=== PATIENT | male | born 1975 | race Two or more races ===

== ENCOUNTER 2020-03-30 06:02 | Inpatient (IN) | payer MEDICAID, OTHER ==
[~2020-03-30] VITALS: Ht 172.7 cm; Wt 69.4 kg
[~2020-03-30 06:02] MED LIST: ACET-2605 GT; ACET-868 GT; ASPI-605 GT; ATEN25TA GT; BISA10SU8 RC; DOCU50LI GT; HYDR-4384 GT; LACT-96 GT; LEVE500T9 GT; LEVO150T8 GT; LORA2DIS4 IJ; MAGN400O6 GT; NA P133E RC; PHEN125O GT; TRAZ-182 GT
--- NOTE | 2020-03-30 06:05 | NUR ---
PT BIB RA FROM [facility] WITH A C/O WITNESSED SEIZURE X 3. PT HAS A GTUBE AND LUE CONTRACTURE. PT IS NON VERBAL AT BASELINE. PT RESPONDS TO PAINFUL STIMULI. PT'S LEFT EYE SCLERA IS RED. PT IS ON THE MONITOR AND CONTINUOUS PULSE OX. 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 WILL CONTINUE TO MONITOR THE PT.
[2020-03-30] MEDS ORDERED: LORAZEPAM INJ 2 MG/ML VIAL ONE (06:12)
--- NOTE | 2020-03-30 06:20 | NUR ---
LOBSTER FISHERMAN IS AT THE BEDSIDE DRAWING THE PT.
--- NOTE | 2020-03-30 06:25 | NUR ---
20G IV STARTED IN RT HAND. PT REC'D MEDICATION ORDERED.
[2020-03-30] MEDS ORDERED: IV NS 0.9% 500 ML BAG IV ONE (06:30)
[2020-03-30] MEDS ORDERED: LORAZEPAM INJ 2 MG/ML VIAL IVP ONE (06:30)
--- NOTE | 2020-03-30 06:40 | NUR ---
PT LEFT FOR CT VIA GURNEY.
[2020-03-30 06:43] LABS: BASOPHILS % (AUTO) 0.7 % (0.0-2.0); EOSINOPHILS % (AUTO) 0.1 % (0.0-6.0); HEMATOCRIT 53 % (39-51); HEMOGLOBIN 18.1 g/dL (13.5-17.5); LYMPHOCYTES # (AUTO) 1.5 /CMM (0.8-4.8); LYMPHOCYTES % (AUTO) 23.3 % (20.0-44.0); MEAN CORPUSCULAR HGB CONC 34 g/dl (31.0-36.0); MEAN CORPUSCULAR VOLUME 96 fL (80-96); MONOCYTES # (AUTO) 0.7 /CMM (0.1-1.30); MONOCYTES % (AUTO) 11.5 % (2.0-12.0); NEUTROPHILS # (AUTO) 4.1 /CMM (1.8-8.9); NEUTROPHILS % (AUTO) 64.4 % (43.0-81.0); PLATELET COUNT (AUTO) 285 /CMM (150-450); WHITE BLOOD COUNT (AUTO) 6.3 K/uL (4.3-11.0)
--- NOTE | 2020-03-30 06:44 | NUR ---
CLINICAL PACKET/MOVE SHEET GIVEN TO ENVIRONMENTAL COMMUNICATIONS SPECIALIST FOR INSURANCE AUTH
--- NOTE | 2020-03-30 06:58 | NUR ---
PT RETURNED FROM CT.
[2020-03-30 07:18] LABS: LYMPHOCYTES % (MANUAL) 28 % (16-48); MONOCYTES % (MANUAL) 10 % (0-11.0); NEUTROPHILS % (MANUAL) 62 (42-76)
--- NOTE | 2020-03-30 07:22 | NUR ---
REPORT GIVEN TO KELLIE WORTHY FOR BRIEN.
[2020-03-30] MEDS ORDERED: LEVETIRACETAM (500MG) 500 MG/5 ML VIAL IV ONE (07:24)
--- NOTE | 2020-03-30 07:28 | NUR ---
CALLED PHARMACY FOR KEPPRA. WAS INSTRUCTED TO MIX IT IN THE ER.
[2020-03-30] MEDS ORDERED: LIOT25TA7 GT (07:29)
[2020-03-30] MEDS ORDERED: TOPI100T GT (07:29)
[2020-03-30] MEDS ORDERED: LACT-209 GT (07:29)
[2020-03-30] MEDS ORDERED: CEPH-570 GT (07:29)
[2020-03-30] MEDS ORDERED: DIVA125C2 GT (07:29)
[2020-03-30] MEDS ORDERED: METO25TA20 GT (07:29)
[2020-03-30] MEDS ORDERED: MUPI22OI2 TP (07:29)
[2020-03-30] MEDS ORDERED: LACT1CAP7 GT (07:29)
[2020-03-30] MEDS ORDERED: TRIA80CR12 TP (07:29)
[2020-03-30] MEDS ORDERED: LEVA1.2528 IH (07:29)
[2020-03-30] MEDS ORDERED: CHOL100045 GT (07:29)
[2020-03-30] MEDS ORDERED: ACET-868 GT (07:29)
[2020-03-30] MEDS ORDERED: AMLO2.5T4 GT (07:29)
[2020-03-30] MEDS ORDERED: LEVETIRACETAM (500MG) 500 MG in IV NS 0.9% 100 ML IV ONE (07:30)
[2020-03-30 07:32] LABS: CREATININE 0.7 mg/dL (0.6-1.3)
[2020-03-30 07:39] LABS: ALBUMIN 3.7 g/dL (3.4-5.0); BILIRUBIN,DIRECT 0.2 mg/dL (0.0-0.2); BILIRUBIN,TOTAL 0.9 mg/dL (0.2-1.0); TOTAL PROTEIN, SERUM 8.9 g/dL (6.4-8.2)
--- NOTE | 2020-03-30 07:43 | NUR ---
RECEIVED REPORT FROM GUY CROOK FOR BRIEN, PT IS AAOX1, NOT IN RESPIRATORY DISTRESS, V/S STABLE, KEPT RESTED AND COMFORTABLE, WILL CONTINUE TO MONITOR.
--- NOTE | 2020-03-30 08:17 | NUR ---
CALLED SAMEER GONZALES [phone] LEFT [facility].
--- NOTE | 2020-03-30 09:07 | NUR ---
GOT ACCEPTANCE WITH TELE BED CALLED [facility].
--- NOTE | 2020-03-30 10:10 | NUR ---
CALLED [facility] FOR TELE BED WILL CALL BACK NO BED AVAILABLE.
--- NOTE | 2020-03-30 10:37 | NUR ---
REPORT GIVEN TO KELLIE KINGSLEY FOR BRIEN.
[2020-03-30 11:15] VITALS: BP 118/102
[2020-03-30] MEDS ORDERED: BISACODYL SUPP (10 MG) 10 MG/SUPP.RECT SUPP.RECT RC PRN (11:30)
[2020-03-30] MEDS ORDERED: ACETAMINOPHEN 325 MG TABLET PO PRN (11:30)
[2020-03-30] MEDS ORDERED: MAGNESIUM HYDROXIDE 30 ML UDC GT PRN (11:30)
--- NOTE | 2020-03-30 11:53 | NUR ---
RN ADMITTING NOTE Report received from Devante in ER. Patient arrived around 1115 by sahara. Patient is bedbound, showing no signs of acute distress or SOB, stable on RA. Patient is non-verbal, occasionally yells out, squirming in bed. Skin assessed and photos taken and placed in chart. Photos also sent to Dr. Blackman per request of the skin (generalized rashes) and left eye redness. Vital signs BP 118/102, HR 106, RR 20, T 97.7F, O2 96% on RA. 153 lbs. Went over medication reconciliation over the phone with Dr. Blackman. Per Dr Blackman: - HOLD KEFLEX, HOLD VITAMIN D3, HOLD LACTOBACILLUS, HOLD TOPICAL CREAM MEDICATIONS, HOLD BACTROBAN - ADD VALPROIC ACID 500MG IV Q12H - ADD KEPPRA 1,000MG Q12H - CBC BMP TOMORROW IN AM - LOVENOX 40MG SUB-Q DAILY Orders repeated back and carried out. Will continue with admitting orders.
[2020-03-30] MEDS ORDERED: LEVETIRACETAM (250 MG) 250 MG TABLET PO SCH (12:00)
[2020-03-30 12:36] VITALS: BP 118/102
[2020-03-30] MEDS ORDERED: ALBUTEROL FS 2.5 MG/3 ML VIAL.NEB NEB PRN (13:30)
[2020-03-30] MEDS: ENOXAPARIN SODIUM 40 MG/0.4 ML DISP.SYRIN SQ SCH (14:00)
[2020-03-30] MEDS: METOPROLOL TARTRATE 25 MG TABLET GT SCH ×2 (14:01→20:19)
[2020-03-30] MEDS: JEVITY 1.2 CAL 1,000 ML BOTTLE GT SCH (15:32)
--- NOTE | 2020-03-30 15:32 | NUR ---
RN NOTE GTF started at 20mls/hr, advance as tolerated. G-tube flushed with 100mls, clean and patent.
[2020-03-30 16:00] VITALS: BP 111/79
[2020-03-30] MEDS: TOPIRAMATE 100 MG TABLET GT SCH (16:36)
[2020-03-30 17:40] VITALS: BP 111/79
--- NOTE | 2020-03-30 18:25 | NUR ---
RN CLOSING NOTE Patient is resting in bed, A/O x1, non-verbal, yells out occasionally. Patient is in no acute distress, no SOB noted, stable on RA. IV line in the right hand #20g is clean and intact s/l. No IVF ordered per Dr. Blackman. G-tube feeding [employer] 1.2 is running at 20mls/hr, will endorse to assembler 1st shift to advance as tolerated. All patient needs met, all due medications given, patient kept clean and dry throughout shift. Fall safety, seizure and aspiration precautions enforced. Will endorse to assembler 1st shift.
--- NOTE | 2020-03-30 19:25 | NUR ---
MS RN NOTES RECEIVED ON BED A/O X1,NON VERBAL,MOANS,WITH LEFT EYE REDNESS NOTED,SIDE RAILS UP X4 PADDED FOR SEIZURE PRECAUTION.WITH GT FEEDING INFUSING VIA GT PUMP,TOLERATED WELL.NO RESIDUAL VOLUME NOTED.WILL CONTINUE TO MONITOR STATUS.
[2020-03-30 20:00] VITALS: BP 132/94
[2020-03-30] MEDS: VALPROATE 500 MG in IV D5W 100 ML IV SCH (20:19)
--- NOTE | 2020-03-30 20:19 | NUR ---
OYSTER PREPARER NOTES SR 123,DUE LOPRESSOR 25MG /GT GIVEN EARLY FOR INCREASED HEART RATE.
[2020-03-30] MEDS: LEVETIRACETAM (250 MG) 250 MG TABLET PO SCH (20:52)
--- NOTE | 2020-03-30 20:55 | NUR ---
GEM STONE CUTTER NOTES HEART RATE THIS TIME 108,CALM AND QUIET THIS TIME.
[2020-03-30 23:55] VITALS: BP 120/84
[2020-03-31] VITALS: BP 120/84
[2020-03-31] MEDS: HYDROCODONE/APAP 5/325MG 1 EACH TABLET GT PRN (01:48)
--- NOTE | 2020-03-31 01:48 | NUR ---
PUBLICATIONS SALES REPRESENTATIVE NOTES AWAKE,MOANS,MEDICATED WITH NORCO 5/325MG,1 TAB GIVEN VIA GT ORDERED.
[2020-03-31 04:00] VITALS: BP 116/92
[2020-03-31] MEDS: METOPROLOL TARTRATE 25 MG TABLET GT SCH ×3 (04:59→20:21)
--- NOTE | 2020-03-31 05:00 | NUR ---
PUBLIC SAFETY OFFICER NOTES BP 116/92,PULSE-100,DUE LOPRESSOR 25MG PO ADMINISTERED SCHEDULED.
--- NOTE | 2020-03-31 06:17 | NUR ---
GAS SCRUBBER OPERATOR NOTES ON BED AWAKE,NON VERBAL.NO EPISODE OF SEIZURE NOTED.SIDE RAILS PADDED.GT FEEDING TOLERATED WELL.REPOSITION PER PROTOCOL.IN NO ACUTE DISTRESS.
[2020-03-31 06:44] LABS: CALCIUM, SERUM 8.7 mg/dL (8.5-10.1); CREATININE 0.8 mg/dL (0.6-1.3); POTASSIUM 3.5 mmol/L (3.5-5.1)
[2020-03-31 07:41] LABS: BASOPHILS # (AUTO) 0.1 /CMM (0.0-0.2); BASOPHILS % (AUTO) 0.8 % (0.0-2.0); HEMATOCRIT 52 % (39-51); HEMOGLOBIN 18.1 g/dL (13.5-17.5); LYMPHOCYTES # (AUTO) 1.9 /CMM (0.8-4.8); LYMPHOCYTES % (AUTO) 29.6 % (20.0-44.0); MEAN CORPUSCULAR HGB CONC 35 g/dl (31.0-36.0); MEAN CORPUSCULAR VOLUME 95 fL (80-96); MONOCYTES # (AUTO) 0.8 /CMM (0.1-1.30); MONOCYTES % (AUTO) 12.3 % (2.0-12.0); NEUTROPHILS # (AUTO) 3.6 /CMM (1.8-8.9); NEUTROPHILS % (AUTO) 57.3 % (43.0-81.0); PLATELET COUNT (AUTO) 356 /CMM (150-450); RED BLOOD CELL COUNT(AUTO) 5.48 MIL/uL (4.5-6.0); WHITE BLOOD COUNT (AUTO) 6.3 K/uL (4.3-11.0)
[2020-03-31 08:00] VITALS: BP 120/86
[2020-03-31] MEDS: ENOXAPARIN SODIUM 40 MG/0.4 ML DISP.SYRIN SQ SCH (08:40)
[2020-03-31] MEDS: TOPIRAMATE 100 MG TABLET GT SCH ×2 (08:40→17:12)
[2020-03-31] MEDS: LEVETIRACETAM (250 MG) 250 MG TABLET PO SCH ×2 (08:44→20:20)
[2020-03-31] MEDS: LIOTHYRONINE SODIUM (25 MCG) 25 MCG TABLET GT SCH (08:44)
[2020-03-31 09:00] VITALS: BP 120/86
[2020-03-31] MEDS ORDERED: ENOXAPARIN SODIUM 40 MG/0.4 ML DISP.SYRIN SQ SCH (09:00)
[2020-03-31] MEDS ORDERED: AMLODIPINE BESYLATE 2.5 MG TABLET GT SCH (09:00)
[2020-03-31] MEDS: VALPROATE 500 MG in IV D5W 100 ML IV SCH ×2 (09:08→20:20)
[2020-03-31 09:11] LABS: BAND % (MANUAL) 1 % (0.0-5.0); LYMPHOCYTES % (MANUAL) 32 % (16-48); MONOCYTES % (MANUAL) 13 % (0-11.0); MYELOCYTES % 1 % (0-0); NEUTROPHILS % (MANUAL) 53 (42-76)
[2020-03-31] MEDS: LEVOTHYROXINE SODIUM 75 MCG TABLET GT SCH (12:08)
[2020-03-31 16:00] VITALS: BP 122/75
--- NOTE | 2020-03-31 19:35 | NUR ---
MS RN OPEN NOTES PATIENT IS LAYING IN BED. A/O X1, NONVERBAL. ON RA, NO SOB/ ACUTE RESPIRATORY DISTRESS NOTED. BED IS IN LOWEST LOCKED POSITION WITH SIDE RAILS UP, SEMI FOWLERS. CALL LIGHT IS WITHIN REACH. WILL CONTINUE TO MONITOR.
[2020-03-31 20:00] VITALS: BP 118/83
[2020-04-01] MEDS: METOPROLOL TARTRATE 25 MG TABLET GT SCH ×3 (04:33→21:00)
[2020-04-01] MEDS: JEVITY 1.2 CAL 1,000 ML BOTTLE GT SCH (04:43)
--- NOTE | 2020-04-01 06:40 | NUR ---
MS RN CLOSE NOTES PATIENT IS LAYING IN BED. NONVERBAL. ON RA, NO SOB/ ACUTE RESPIRATORY DISTRESS NOTED. IV IN R FOREARM, #22G IS PATENT AND INTACT, ALL DUE ANTIBIOTICS GIVEN. SHOWS NO SIGNS OF PAIN/ DISTRESS. BED IS IN LOWEST LOCKED POSITION WITH SIDE RAILS UP X3, SEMI FOWLERS. CALL LIGHT IS WITHIN REACH. WILL ENDORSE TO AM NURSE.
--- NOTE | 2020-04-01 07:40 | NUR ---
rn notes patient received on room air, no sob noted, running jevity @ 85 ml per hour for 24 hours per report. Bed at the lowest setting, call light within reach, side rails up x2.
--- NOTE | 2020-04-01 07:41 | NUR ---
rn notes patient received on non rebreather mask at this time, no sob noted, shows no s/s of pain at this time. Pereira Cath present and is draining. KATE midline present and is flushing. Patient is running with GT osmolite @ 50 ml per hour for 24 hours per report. No bloody secretions noted. bed at the lowest setting, call light within reach, side rails up x2. Addendum: 04/01/20 at 0742 by GILBERT LE RN ERROR in charting.
[2020-04-01] MEDS: TOPIRAMATE 100 MG TABLET GT SCH ×2 (08:06→16:46)
[2020-04-01] MEDS: LEVETIRACETAM (250 MG) 250 MG TABLET PO SCH ×2 (08:06→21:51)
[2020-04-01] MEDS: BENAZEPRIL HCL 10 MG TABLET PEG SCH (08:06)
[2020-04-01] MEDS: ENOXAPARIN SODIUM 40 MG/0.4 ML DISP.SYRIN SQ SCH (08:07)
[2020-04-01] MEDS: LIOTHYRONINE SODIUM (25 MCG) 25 MCG TABLET GT SCH (08:09)
[2020-04-01] MEDS: VALPROATE 500 MG in IV D5W 100 ML IV SCH (09:00)
[2020-04-01 09:22] VITALS: BP 117/78
[2020-04-01] MEDS: TRAZODONE 50 MG TABLET GT SCH (11:22)
[2020-04-01] MEDS: LEVOTHYROXINE SODIUM 75 MCG TABLET GT SCH (11:22)
--- NOTE | 2020-04-01 12:36 | NUR ---
rn notes covid tests done 2x, with 2 different test kits, per LAB, no need to sign and I can just drop them off. Scabies scraped logged in the log book and signed.
[2020-04-01 15:59] VITALS: BP 105/58
--- NOTE | 2020-04-01 18:00 | NUR ---
rn notes patient remains on room air, no sob noted, a/o x0 non verbal, incontinent and diaper. GT jevity running at 85 ml per hour. R FA 22 present. guevara virus sent to the lab without signatures needed. Per family, they want the patient to go somewhere else when discharged. Bed at the lowest setting, call light within reach, side rails up x2.
--- NOTE | 2020-04-01 19:36 | NUR ---
MS RN OPEN NOTES PATIENT IS WATCHING TV IN BED. NONVERBAL. ON RA, NO SOB/ ACUTE RESPIRATORY DISTRESS NOTED. SHOWS NO SIGNS OF PAIN AT THE MOMENT. BED IS IN LOWEST LOCKED POSITION WITH SIDE RAILS UP X3, SEMI FOWLERS. CALL LIGHT IS WITHIN REACH. WILL CONTINUE TO MONITOR.
[2020-04-01 20:00] VITALS: BP 97/54
--- NOTE | 2020-04-01 21:30 | NUR ---
MS RN NOTES SPOKE TO DARCY (SISTER). DARCY STATED THAT SHE DID NOT WANT HER BROTHER TO GO BACK TO [facility] WHEN DISCHARGED. SHE STATED THAT THEY NEGLECTED HIM AT THAT FACILITY. WILL ENDORSE TO AM NURSE.
[2020-04-01] MEDS: VALPROIC ACID 250 MG/5 ML UDC GT SCH (21:44)
[2020-04-02] MEDS: JEVITY 1.2 CAL 1,000 ML BOTTLE GT SCH (03:49)
[2020-04-02] MEDS: METOPROLOL TARTRATE 25 MG TABLET GT SCH ×3 (04:25→21:00)
--- NOTE | 2020-04-02 06:38 | NUR ---
MS RN CLOSE NOTES PATIENT IS LAYING IN BED. NONVERBAL. ON RA NO SOB/ ACUTE RESPIRATORY DISTRESS NOTED. APPEARS COMFORTABLE/ NO COMPLAINTS OF PAIN AT THE MOMENT. IV IN R FOREARM #22G IS PATENT AND INTACT. GTUBE IN PLACE RECEIVING FEEDING @ 85MLS/HR. BED IS IN LOWEST LOCKED POSITION WITH SIDE RAILS UP, SEMI FOWLERS. CALL LIGHT IS WITHIN REACH. WILL ENDORSE TO AM NURSE.
[2020-04-02 08:00] VITALS: BP 131/95
--- NOTE | 2020-04-02 09:38 | NUR ---
WOUND CARE CONSULT: PT PRESENTS WITH BODY RASH AND SACRAL SCAR, PRESENT ON ADMISSION. MD IS AWARE OF RASH. RECOMMENDATIONS MADE FOR SKIN PROTECTION. DISCUSSED WITH NURSING STAFF. PT IS ON CHARLEE ISOFLEX LOW AIRLOSS BED. WILL SEE PRN. IN AGREEMENT WITH PLAN OF CARE.
[2020-04-02] MEDS ORDERED: Z GUARD REMEDY 2 OZ OINT TP PRN (10:00)
[2020-04-02] MEDS: ENOXAPARIN SODIUM 40 MG/0.4 ML DISP.SYRIN SQ SCH (10:06)
[2020-04-02] MEDS: TOPIRAMATE 100 MG TABLET GT SCH ×2 (10:09→18:19)
[2020-04-02] MEDS: LEVETIRACETAM (250 MG) 250 MG TABLET PO SCH ×2 (10:10→21:32)
[2020-04-02] MEDS: VALPROIC ACID 250 MG/5 ML UDC GT SCH ×2 (10:10→21:32)
[2020-04-02] MEDS: BENAZEPRIL HCL 10 MG TABLET PEG SCH (10:10)
[2020-04-02] MEDS: TRAZODONE 50 MG TABLET GT SCH (10:11)
[2020-04-02] MEDS: LIOTHYRONINE SODIUM (25 MCG) 25 MCG TABLET GT SCH (10:18)
[2020-04-02] MEDS: Z GUARD REMEDY 2 OZ OINT TP SCH (11:59)
[2020-04-02] MEDS: LEVOTHYROXINE SODIUM 75 MCG TABLET GT SCH (11:59)
[2020-04-02] MEDS ORDERED: PERMETHRIN 5% CRM 60 GM TUBE TP ONE ×3 (15:00→21:00)
[2020-04-02 16:00] VITALS: BP 129/90
--- NOTE | 2020-04-02 16:00 | NUR ---
REPORTED TO DR. GONZALES POSITIVE SCABIES REPORT.STILL AWAITING COVID REPORT.
--- NOTE | 2020-04-02 16:50 | NUR ---
PHARMACIST CHANGED ELIMITE TIME.
--- NOTE | 2020-04-02 18:00 | NUR ---
THRASHING ABOUT BED FREQ. GIVEN RASHI.
[2020-04-02] MEDS: HYDROCODONE/APAP 5/325MG 1 EACH TABLET GT PRN (18:25)
--- NOTE | 2020-04-02 19:20 | NUR ---
MS/RN OPENING NOTES: RECEIVED PATIENT IS IN BED. NONVERBAL. TRACKS WITH EYES. ON RA, NO SOB/ ACUTE RESPIRATORY DISTRESS NOTED. SHOWS NO SIGNS OF PAIN AT THE MOMENT. G-TUBE PRESENT, NO RESIDUAL NOTED. INFUSING FEEDING AT 85MLS/HR X 18HRS. IV PRESENT ON THE RIGHT FA #22G. INTACT, PATENT AND FLUSHING WELL. BILATERAL SOFT WRIST RESTRAINTS PRESENT AND HAS ON ORDER. WILL CHECK CIRCULATION AND SKIN INTEGRITY HOURLY. SAFETY MEASURES ON, BED IS IN LOWEST LOCKED POSITION WITH SIDE RAILS UP X3, SEMI FOWLERS. CALL LIGHT IS WITHIN REACH. WILL CONTINUE TO MONITOR ACCORDINGLY.
[2020-04-02 20:00] VITALS: BP 107/70
[2020-04-03] MEDS: METOPROLOL TARTRATE 25 MG TABLET GT SCH ×3 (04:36→20:40)
--- NOTE | 2020-04-03 06:57 | NUR ---
MS/RN CLOSING NOTES: PATIENT IS IN BED, IN COMFORTABLE POSITIONED. KEPT WARM, CLEAN AND DRY ALL NIGHT. NONVERBAL. TRACKS WITH EYES. ON RA, NO SOB/ ACUTE RESPIRATORY DISTRESS NOTED. SHOWS NO SIGNS OF PAIN AT THE MOMENT. G-TUBE PRESENT, NO RESIDUAL NOTED. INFUSING FEEDING AT 85MLS/HR X 18HRS. IV PRESENT ON THE RIGHT FA #22G. INTACT, PATENT AND FLUSHING WELL. BILATERAL SOFT WRIST RESTRAINTS PRESENT. CIRCULATION AND SKIN INTEGRITY CHECKED ACCORDINGLY. SAFETY MEASURES ON, BED IS IN LOWEST LOCKED POSITION WITH SIDE RAILS UP X3, SEMI FOWLERS. CALL LIGHT IS WITHIN REACH. WILL ENDORSE TO DAY SHIFT FOR BRIEN.
--- NOTE | 2020-04-03 07:06 | NUR ---
MS RN OPENING NOTES: RECEIVED PATIENT IS IN BED, AWAKE AT THIS TIME. NONVERBAL WITH OPEN EYES. NO SOB NOTED, NOS/S OF ANY ACUTE DISTRESS NOTED. NO S/S OF PAIN OR FACIAL GRIMACE NOTED AT THE MOMENT. G-TUBE IN PLACE, NO RESIDUAL NOTED. IV ACCESS IN RFA #22G. INTACT, PATENT AND FLUSHING WELL. BILATERAL SOFT WRIST RESTRAINTS PRESENT. GOOD CIRCULATION NOTED, CAPILLARY REFILL <3 SECONDS, PULSES PRESENT. ASPIRATION AND SAFETY PRECAUTIONS IN PLACE. BED IN LOWEST LOCKED POSITION, SIDE RAILS UP, HOB ELEVATED, CALL LIGHT WITHIN REACH WILL CONTINUE TO MONITOR ACCORDINGLY.
[2020-04-03 08:00] VITALS: BP 153/82
[2020-04-03] MEDS: ENOXAPARIN SODIUM 40 MG/0.4 ML DISP.SYRIN SQ SCH (08:38)
[2020-04-03] MEDS: TOPIRAMATE 100 MG TABLET GT SCH ×2 (08:39→17:11)
[2020-04-03] MEDS: LEVETIRACETAM (250 MG) 250 MG TABLET PO SCH ×2 (08:41→20:39)
[2020-04-03] MEDS: VALPROIC ACID 250 MG/5 ML UDC GT SCH ×2 (08:42→20:38)
[2020-04-03] MEDS: BENAZEPRIL HCL 10 MG TABLET PEG SCH (08:42)
[2020-04-03] MEDS: LIOTHYRONINE SODIUM (25 MCG) 25 MCG TABLET GT SCH (08:47)
[2020-04-03] MEDS: Z GUARD REMEDY 2 OZ OINT TP SCH (08:48)
[2020-04-03] MEDS: LEVOTHYROXINE SODIUM 75 MCG TABLET GT SCH (11:34)
[2020-04-03] MEDS: TRAZODONE 50 MG TABLET GT SCH (11:36)
--- NOTE | 2020-04-03 11:56 | NUR ---
ACUTE MEDICAL RESTRAIN RENEWED AT THIS TIME. PT REORIENTED/REDIRECTED. ASSESSED CIRCULATION, PULSES PRESENT, GOOD CIRCULATION, CAPILLARY REFILL <3SECONDS. WILL CONTINUE TO MONITOR
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
[2020-04-03] MEDS: JEVITY 1.2 CAL 1,000 ML BOTTLE GT SCH (15:06)
--- NOTE | 2020-04-03 15:15 | NUR ---
RECEIVED DISCHARGED INSTRUCTIONS FROM DR GONZALES. INSTRUCTION READ BACK. PER DR GONZALES, PATIENT'S Discharge meds essentially unchanged aside from the Depakote, the dose is now 500 mg G-tube twice daily. All the other meds are the same including Synthroid 150 mcg a day, Cytomel 25 mcg daily, topiramate 100 mg b.i.d., as needed nebulized treatments, metoprolol tartrate 25 mg every 8 hours. DISCONTINUE enoxaparin daily, upon discharge. FOLLOWUP: Within 48-72 hours in skilled facility. ORDERS CARRIED OUT PRESCRIBED, WILL CONTINUE TO MONITOR Addendum: 04/03/20 at 1703 by SUDEEP BONILLA RN RECEIVED DISCHARGED INSTRUCTIONS FROM DR GONZALES. INSTRUCTION READ BACK. PER DR GONZALES, PATIENT'S Discharge meds essentially unchanged aside from the Depakote, the dose is now 500 mg G-tube twice daily. All the other meds are the same including Synthroid 150 mcg a day, Cytomel 25 mcg daily, topiramate 100 mg b.i.d., as needed nebulized treatments, metoprolol tartrate 25 mg every 8 hours. DISCONTINUE enoxaparin daily, upon discharge. FOLLOWUP: Within 48-72 hours in skilled facility. TMS FORM COMPLETED PER ORDER AND PLACED IN PATIENTS CHART PENDING SIGNATURE ORDERS CARRIED OUT PRESCRIBED, WILL CONTINUE TO MONITOR
[2020-04-03 16:00] VITALS: BP 115/72
--- NOTE | 2020-04-03 18:51 | NUR ---
AMBULETTE DRIVER CLOSING NOTES PT IN BED AWAKE AT THIS TIME. PT REMAINED STABLE THROUGHOUT SHIFT. G-TUBE IN PLACE, KEPT CLEAN AND DRY. PT TOLERATED G-TUBE FEEDING WELL. ALL CARE, NEEDS, TREATMENT AND MEDICATIONS ADMINISTERED ANTICIPATED PER ORDER. PT KEPT CLEAN AND DRY. PT REPOSITIONED Q2HRS, PRN AND PER PROTOCOL. ASPIRATION, SEIZURE AND SAFETY PRECAUTIONS IN PLACE. BED IN LOWEST LOCKED POSITION, SIDE RAILS UP, HOB ELEVATED, CALL LIGHT WITHIN REACH. WILL ENDORSE TO NIGHT FOR BRIEN
--- NOTE | 2020-04-03 19:26 | NUR ---
MS RN NOTES PATIENT RECEIVED IN BED RESTING COMFORTABLY. PATIENT NON-VERBAL, RESPONSIVE WITH LIGHT TOUCH. ON ROOM AIR WITH NO SIGNS OF RESPIRATORY DISTRESS AT THIS TIME, WITH EVEN NON-LABORED BREATHING AND NO SOB NOTED. G-TUBE FEEDING IN PLACE AND INFUSING JEVITY AT 85mL/hr, TOLERATING FEEDING. IV ACCESS INTACT AND PATENT. BILATERAL SOFT WRIST RESTRAINTS IN PLACE, WITH NORMAL SKIN CIRCULATION. SAFETY PRECAUTIONS IMPLEMENTED WITH BED LOCKED, BED IN THE LOWEST POSITION, BILATERAL SIDE RAILS UP, BED ALARM ON, AND CALL LIGHT WITHIN EASY REACH OF THE PATIENT. WILL CONTINUE TO MONITOR PATIENT.
[2020-04-03 20:00] VITALS: BP 109/70
[2020-04-03 20:25] VITALS: BP 109/70
--- NOTE | 2020-04-04 02:56 | NUR ---
MS RN NOTES PATIENT IV ACCESS ON RIGHT FOREARM REMOVED DUE TO PATIENT PRESENTING PAIN WHEN FLUSHING SITE. REMOVED IV ACCESS, IV CATHETER TIP INTACT, AND APPLIED PRESSURED TO SITE. INSERT NEW IV ACCESS ON LEFT HAND 22 GAUGE, SALINE LOCK, INTACT AND PATENT. WILL CONTINUE TO MONITOR PATIENT.
[2020-04-04] MEDS: METOPROLOL TARTRATE 25 MG TABLET GT SCH ×3 (05:16→21:01)
--- NOTE | 2020-04-04 06:55 | NUR ---
MS RN NOTES PATIENT IN BED RESTING COMFORTABLY, ON ROOM AIR WITH NO SIGNS OF RESPIRATORY DISTRESS, WITH EVEN NON-LABORED BREATHING. PATIENT SKIN KEPT CLEAN AND DRY. IV ACCESS INTACT AND PATENT SALINE LOCK. G-TUBE FEEDING CHANGED AND INFUSING 85ml/hr OF JEVITY. MET ALL OF PATIENT'S NEEDS. PATIENT PRESENTS NO PAIN OR DISCOMFORT. SAFETY PRECAUTIONS IMPLEMENTED WITH BED LOCKED, BED IN THE LOWEST POSITION, BILATERAL SIDE RAILS UP, HEAD OF THE BED IN SEMI-FOWLERS POSITION, AND CALL LIGHT WITHIN EASY REACH OF PATIENT. WILL ENDORSE PLAN OF CARE TO UPCOMING DAYSHIFT NURSE.
--- NOTE | 2020-04-04 07:07 | NUR ---
MS RN OPENING NOTES: RECEIVED PT AWAKE IN BED AT THIS TIME. PT IS NONVERBAL. NO SOB NOTED, NO S/S OF ANY ACUTE DISTRESS NOTED. NO S/S OF PAIN, NO GROANING, NO FACIAL GRIMACE NOTED AT THIS TIME. G-TUBE IN PLACE, CLEAN AND DRY, NO RESIDUAL NOTED. IV ACCESS IN LEFT HAND G#22. INTACT, PATENT AND FLUSHING WELL. BILATERAL SOFT WRIST RESTRAINTS NOTED. GOOD CIRCULATION NOTED, CAPILLARY REFILL <3 SECONDS, PULSES PRESENT. ASPIRATION, SEIZURE AND SAFETY PRECAUTIONS IN PLACE. BED IN LOWEST LOCKED POSITION, SIDE RAILS UP AND PADDED, HOB ELEVATED, CALL LIGHT WITHIN REACH WILL CONTINUE TO MONITOR
[2020-04-04 08:00] VITALS: BP 123/67
[2020-04-04] MEDS: VALPROIC ACID 250 MG/5 ML UDC GT SCH ×2 (08:42→21:01)
[2020-04-04] MEDS: BENAZEPRIL HCL 10 MG TABLET PEG SCH (08:42)
[2020-04-04] MEDS: TOPIRAMATE 100 MG TABLET GT SCH ×2 (08:43→16:29)
[2020-04-04] MEDS: LEVETIRACETAM (250 MG) 250 MG TABLET PO SCH ×2 (08:43→21:02)
[2020-04-04] MEDS: ENOXAPARIN SODIUM 40 MG/0.4 ML DISP.SYRIN SQ SCH (08:45)
[2020-04-04] MEDS: LIOTHYRONINE SODIUM (25 MCG) 25 MCG TABLET GT SCH (08:53)
[2020-04-04] MEDS: Z GUARD REMEDY 2 OZ OINT TP SCH (08:53)
[2020-04-04] MEDS: TRAZODONE 50 MG TABLET GT SCH (11:08)
[2020-04-04] MEDS: LEVOTHYROXINE SODIUM 75 MCG TABLET GT SCH (11:08)
[2020-04-04] MEDS: JEVITY 1.2 CAL 1,000 ML BOTTLE GT SCH (14:42)
--- NOTE | 2020-04-04 18:00 | NUR ---
PER DR GONZALES, FACILITY RECEIVING PT UPON DISCHARGED SHOULD BE NOTIFIED OF PATIENT'S SCABIES AND PT SHOULD BE DISCHARGED WHEN COVID-19 RESULT COMES BACK NEGATIVE. ORDERS READ BACK. WILL ENDORSE TO PLASTERER MAINTENANCE NURSE FOR BRIEN
[2020-04-04 20:00] VITALS: BP 111/83
--- NOTE | 2020-04-04 21:30 | NUR ---
MS RN NOTES PUT BACK ON RESTRAINTS,SO RESTLESS ON BED.WILL CONTINUE TO MONITOR STATUS.
[2020-04-05] MEDS: JEVITY 1.2 CAL 1,000 ML BOTTLE GT SCH (03:30)
[2020-04-05] MEDS: METOPROLOL TARTRATE 25 MG TABLET GT SCH ×3 (05:22→20:37)
--- NOTE | 2020-04-05 06:16 | NUR ---
MS RN NOTES NO SIGNIFICANT CHANGE IN STATUS.GT FEEDING TOLERATED WELL.NO SEIZURE ACTIVITY NOTED.SIDE RAILS PADDED FOR SAFETY.NEXT ELIMITE TREATMENT 04/09/20.POSSIBLE TRANSFER TO SNF AWAITING COVID TEST RESULT.IN NO ACUTE DISTRESS.
--- NOTE | 2020-04-05 08:00 | NUR ---
MS/RN Opening note Received patient in bed, able to responds physical stimuli. Does no appears pain or any discomfort. Respiratory even and unlabored in room air and no distress observed. Also no fever, skin is warm to touch, kept clean/dry, g tube will off at 0800 and reconnect at 1400. Keep bed in locked with elevated HOB for secure airway and aspiration precaution. Call light within reach, will continue to monitor.
[2020-04-05] MEDS: TOPIRAMATE 100 MG TABLET GT SCH ×2 (09:03→16:28)
[2020-04-05] MEDS: VALPROIC ACID 250 MG/5 ML UDC GT SCH ×2 (09:03→20:36)
[2020-04-05] MEDS: BENAZEPRIL HCL 10 MG TABLET PEG SCH (09:03)
[2020-04-05] MEDS: LIOTHYRONINE SODIUM (25 MCG) 25 MCG TABLET GT SCH (09:04)
[2020-04-05] MEDS: LEVETIRACETAM (250 MG) 250 MG TABLET PO SCH ×2 (09:04→20:38)
[2020-04-05] MEDS: Z GUARD REMEDY 2 OZ OINT TP SCH (09:06)
[2020-04-05] MEDS: ENOXAPARIN SODIUM 40 MG/0.4 ML DISP.SYRIN SQ SCH (09:06)
--- NOTE | 2020-04-05 09:45 | NUR ---
Patient detected positive covid and going transfer to room 113, given report Dena/KELLIE over the phone.
--- NOTE | 2020-04-05 10:20 | NUR ---
Patient transferred SORAYA for continuation of care, in stable condition. v/s: bp-127/74, p-86, r- 18, t-98.0, [id number]% in room air.
--- NOTE | 2020-04-05 10:21 | NUR ---
MS RN NOTES RECEIVED PATIENT FROM KELLIE PIMENTEL FOR CONTINUATION OF CARE. PATIENT POSITIVE FOR COVID AND SCABIES.
[2020-04-05] MEDS: LEVOTHYROXINE SODIUM 75 MCG TABLET GT SCH (11:39)
[2020-04-05] MEDS: TRAZODONE 50 MG TABLET GT SCH (11:39)
[2020-04-05] MEDS ORDERED: IVERMECTIN 3 MG TABLET GT ONE (18:00)
--- NOTE | 2020-04-05 18:38 | NUR ---
MS RN NOTE PATIENT RESTING COMFORTABLY IN BED. HOB ELEVATED. NO S/S OF RESPIRATORY DISTRESS. REMAIN ON ROOM AIR WITH SPO2 OF 94-100%. NO COUGH/FEVER/SOB OBSERVED DURING THE SHIFT. BILATERAL WRIST RESTRAINT INTACT WITH SKIN AND CIRCULATION CHECK DONE. RIGHT HAND # 22 SL INTACT AND PATENT. GT INTACT AND PATENT MARCO ANTONIO JEVITY 1/2 AT 85ML/HR. WELL. NO RESIDUAL OBSERVED DURING THE SHIFT. CONTACT/DROPLET PRECAUTIONS OBSERVED AT ALL TIME FOR +COVID AND SCABIES. BED IN LOWEST POSITION, LOCKED. BED ALARM ON. CALL LIGHT WITHIN REACH. IN NO APPARENT DISTRESS.
--- NOTE | 2020-04-05 19:00 | NUR ---
RECEIVED PATIENT IN HIS BED. EYES OPEN SOME EYE CONTACT SMILES QUICKLY. NON VERBALNOTED HE IS MOVING AIMLESSLY IN THE BED.ROOM AIR SATS 98% HOB UP ASPIRATION PRECAUTIONS D/T NOTED GT FEEDING
[2020-04-05 20:00] VITALS: BP 120/84
[2020-04-06] VITALS: BP 109/76
[2020-04-06] MEDS: JEVITY 1.2 CAL 1,000 ML BOTTLE GT SCH (01:50)
[2020-04-06] MEDS: METOPROLOL TARTRATE 25 MG TABLET GT SCH ×2 (05:31→12:22)
--- NOTE | 2020-04-06 06:05 | NUR ---
ENDING NOTES: AWAKE 3/4 OF THIS NIGHT. NOTED HE IS MOVING ABOUT AIMLESSILY OVER THE BED...POSSSIBLY D/T IS BACK ITCHING FROM THE SCABIES. BATH GIVEN AND CLEAN LINEN. WHEN BEING TURNED HE MAKES HIMSELF RIDGET. HIS RASH IS STILL OVER HIS BODY NECK TORSO BACK ARMS AND KEGS. FOOT DROP NOTED. WHEN HE DOES SEE SOMEONE AT HIS BEDSIDE HE WILL SMILE . TOLERATING THE GT FEEDING W/O RESIDUAL. ASP PRECAUTION THIS 12 HOURS. SEIZURE PRECAUTIONS THIS 12 HOURS MAINTAINED. GOOD NIGHT
[2020-04-06 08:00] VITALS: BP 135/80
--- NOTE | 2020-04-06 08:26 | NUR ---
RN Note: Pt received alert awake Oriented to name. On room air, no breathing distress noted. No S/S of distress/discomfort noted. Safety measures Observed. Aspiration precautions observed. G-tube is OFF, will start at 14oo as ordered. No residual noted. Continue to turn & reposition. No restraints required at this time. continue with plan of care. continue with Contact/droplet precautions for COVID +ve and scabies.
[2020-04-06] MEDS: LEVETIRACETAM (250 MG) 250 MG TABLET PO SCH (09:07)
[2020-04-06] MEDS: LIOTHYRONINE SODIUM (25 MCG) 25 MCG TABLET GT SCH (09:07)
[2020-04-06] MEDS: BENAZEPRIL HCL 10 MG TABLET PEG SCH (09:08)
[2020-04-06] MEDS: VALPROIC ACID 250 MG/5 ML UDC GT SCH (09:08)
[2020-04-06] MEDS: TOPIRAMATE 100 MG TABLET GT SCH (09:08)
[2020-04-06] MEDS: Z GUARD REMEDY 2 OZ OINT TP SCH (09:08)
[2020-04-06] MEDS: ENOXAPARIN SODIUM 40 MG/0.4 ML DISP.SYRIN SQ SCH (09:12)
--- NOTE | 2020-04-06 11:30 | NUR ---
RN note: Report given to Alina HOPKINS for continuity of care. Plan to discharge pt to [facility]. Report given to RN supervisor cab at SNF. Discharge package is printed & placed in pt chart.
[2020-04-06 12:22] VITALS: BP 100/75
[2020-04-06] MEDS: LEVOTHYROXINE SODIUM 75 MCG TABLET GT SCH (12:26)
--- NOTE | 2020-04-06 14:10 | NUR ---
TROUBLE TRACER SUMMARY PT DISCHARGED TO [facility]IA [facility], P/U BY [facility]. PT IS NONVERBAL. NON-MONITORED, VSS. TOLERATING RA. RESPIRATIONS ARE EVEN AND UNLABORED, NOT IN ANY ACUTE DISTRESS NOTED. GT IN PLACE, FLUSHED, INTACT. SKIN CDI. NOTED WITH GENERALIZED RASHES. PICTURES TAKEN BY MORNING RN AND PLACED IN CHART. [facility], REPORT GIVEN TO RN DIRECTOR ON AIR. BEDSIDE ENDORSEMENT GIVEN TO EMT PERSONNEL. ISOLATION PRECUATIONS RENDERED FOR POSITIVE COVID AND SCABIES. PT HAD NO BELONGINGS. PT LEFT IN MEDICAL STABLE CONDITION,.
[2020-04-09] MEDS ORDERED: PERMETHRIN 5% CRM 60 GM TUBE TP ONE (21:00)
== END 2020-04-06 14:00 | DRG 53 ==
LOC: ER 06:04 → TELE 10:37 → MED 03-31 09:10 → MEDSG1 04-05 10:04
PROVIDERS: ADMIT Internal Medicine; ATTEND Internal Medicine
DX: G40.409 Other generalized epilepsy and epileptic syndromes, not intractable, without status epilepticus (principal); G93.1 Anoxic brain damage, not elsewhere classified; I10 Essential (primary) hypertension; E03.9 Hypothyroidism, unspecified; U07.1 COVID-19; R79.89 Other specified abnormal findings of blood chemistry; R00.0 Tachycardia, unspecified; Z93.1 Gastrostomy status; R21 Rash and other nonspecific skin eruption; R13.10 Dysphagia, unspecified; Z88.2 Allergy status to sulfonamides
CPT/HCPCS: 36415; 70450-TC; 71045-TC; 80048-TC; 80076-TC; 80164-TC; 82962-TC; 84443-TC; 85025-TC; 85730-TC; 87081-TC; A4217; A6403; G0378; J1650; J1953; J2060; J3490; J7030; J7040; J7060; U0003-CS

== ENCOUNTER 2020-05-24 12:24 | Inpatient (IN) | payer MEDICAID ==
[~2020-05-24] VITALS: Ht 177.8 cm; Wt 66.2 kg
[~2020-05-24 12:24] MED LIST changes: -ACET-2605 GT; +AMLO2.5T4 GT; -ASPI-605 GT; -ATEN25TA GT; +CEPH-570 GT; +CHOL100045 GT; +DIVA125C2 GT; -DOCU50LI GT; +LACT-209 GT; -LACT-96 GT; +LACT1CAP7 GT; +LEVA1.2528 IH; +LIOT25TA7 GT; -LORA2DIS4 IJ; +METO25TA20 GT; +MUPI22OI2 TP; -NA P133E RC; -PHEN125O GT; +TOPI100T GT; +TRIA80CR12 TP
[2020-05-24] MEDS ORDERED: IV NS 0.9% 500 ML BAG IV ONE (13:00)
[2020-05-24] MEDS ORDERED: LEVETIRACETAM (500MG) 500 MG in IV NS 0.9% 100 ML IV ONE (13:00)
[2020-05-24 13:02] LABS: BASOPHILS # (AUTO) 0.1 /CMM (0.0-0.2); BASOPHILS % (AUTO) 0.9 % (0.0-2.0); EOSINOPHILS % (AUTO) 0.1 % (0.0-6.0); HEMATOCRIT 48 % (39-51); HEMOGLOBIN 16.1 g/dL (13.5-17.5); LYMPHOCYTES # (AUTO) 1.8 /CMM (0.8-4.8); LYMPHOCYTES % (AUTO) 32.8 % (20.0-44.0); MEAN CORPUSCULAR HGB CONC 34 g/dl (31.0-36.0); MEAN CORPUSCULAR VOLUME 96 fL (80-96); MONOCYTES # (AUTO) 1.1 /CMM (0.1-1.30); NEUTROPHILS # (AUTO) 2.5 /CMM (1.8-8.9); NEUTROPHILS % (AUTO) 46.2 % (43.0-81.0); PLATELET COUNT (AUTO) 268 /CMM (150-450); RED BLOOD CELL COUNT(AUTO) 4.95 MIL/uL (4.5-6.0); WHITE BLOOD COUNT (AUTO) 5.4 K/uL (4.3-11.0)
--- NOTE | 2020-05-24 13:15 | NUR ---
bibra90 frm [facility]. per report, noted "seizure like activity" unknown duration bg 104 user acceptance tester. PT NON VERBAL, EYES CLOSED. VSS. PLACED ON STEEL DIVISION SUPERVISOR, ST. PT SEEN & EVAL'D BY DR. BARKLEY. PLACED ON SEZURE PRECAUTION. MEDICATED ORDERED & WILL CONT TO MONITOR.
[2020-05-24 13:17] LABS: CALCIUM, SERUM 9.3 mg/dL (8.5-10.1); CREATININE 0.7 mg/dL (0.6-1.3); POTASSIUM 3.7 mmol/L (3.5-5.1)
[2020-05-24 13:23] LABS: ALBUMIN 3.7 g/dL (3.4-5.0); BILIRUBIN,DIRECT 0.2 mg/dL (0.0-0.2); BILIRUBIN,TOTAL 0.7 mg/dL (0.2-1.0); TOTAL PROTEIN, SERUM 8.5 g/dL (6.4-8.2)
--- NOTE | 2020-05-24 14:24 | NUR ---
CALLED [facility] ETA 1600 TRIP #[id number]
[2020-05-24 15:13] LABS: LYMPHOCYTES % (MANUAL) 43 % (16-48); MONOCYTES % (MANUAL) 17 % (0-11.0); NEUTROPHILS % (MANUAL) 38 (42-76); REACTIVE LYMPHOCYTES 2 % (0-0)
[2020-05-24] MEDS ORDERED: LORAZEPAM INJ 2 MG/ML VIAL ONE ×2 (17:12→18:21)
--- NOTE | 2020-05-24 17:22 | NUR ---
AMBULANCE COMPANY @ REFUSED TO TRANSFER PT DUE TO HR 130. MEDICATED PER ERMD ORDER, PT MARCO ANTONIO WELL. WILL CONT TO MONITOR.
[2020-05-24] MEDS ORDERED: LORAZEPAM INJ 2 MG/ML VIAL IV ONE ×2 (17:30→18:00)
[2020-05-24] MEDS ORDERED: IV NS 0.9% 1,000 ML IV ONE (18:00)
[2020-05-24] MEDS ORDERED: ACET-868 GT (18:43)
[2020-05-24] MEDS ORDERED: ACET-2605 GT (18:43)
[2020-05-24] MEDS ORDERED: NA P133E RC (18:43)
[2020-05-24] MEDS ORDERED: DOCU-141 GT (18:43)
[2020-05-24] MEDS ORDERED: ONDA4TAB5 GT (18:43)
[2020-05-24] MEDS ORDERED: LEVA15HF4 IH (18:43)
[2020-05-24] MEDS ORDERED: CRAN425C6 GT (18:43)
[2020-05-24] MEDS ORDERED: ACET650S11 RC (18:43)
[2020-05-24] MEDS ORDERED: LORA2VIA11 IM (18:43)
[2020-05-24] MEDS ORDERED: ENOX40DI SQ (18:43)
[2020-05-24] MEDS ORDERED: MULT-447 GT (18:43)
[2020-05-24 18:46] LABS: APPEARANCE,URINE Clear (CLEAR); BILIRUBIN,URINE Negative (NEGATIVE); BLOOD, URINE Moderate Ery/uL (NEGATIVE); COLOR,URINE Yellow (YELLOW); KETONES,URINE Negative (NEGATIVE); LEUKOCYTE ESTERASE ,URINE Negative (NEGATIVE); NITRITE, URINE Negative (NEGATIVE); PROTEIN,URINE 100 mg/dl (NEGATIVE); UGLUCOSE Negative (NEGATIVE); UROBILINOGEN,URINE 0.2 EU/dL (0.2)
[2020-05-24 18:56] LABS: RBC,URINE 21-50 /HPF (0-2)
--- NOTE | 2020-05-24 18:56 | NUR ---
GAVE MOVESHEET AND CLINICALS TO ADMITTING
[2020-05-24 18:57] LABS: BACTERIA,URINE Few /HPF (None Seen); MUCUS,URINE Few /LPF (None Seen); SQUAMOUS EPITHELIAL CELL,UR Few /HPF (None Seen)
[2020-05-24] MEDS ORDERED: LEVOFLOXACIN 500 MG /D5W 100ML 500 MG/100 ML PIGGYBACK IV ONE (19:00)
--- NOTE | 2020-05-24 19:30 | NUR ---
DR RONNY HOFFMANN SPEAKING WITH DR SCOTT REGARDING ADMISSION
--- NOTE | 2020-05-24 19:51 | NUR ---
CALLED NURSING SUP FOR TELE BED
--- NOTE | 2020-05-24 20:00 | NUR ---
PT RESTING, RR EVEN & UNLABORED, NO ACUTE DISTRESS NOTED. PT ON TELE, ST. WILL CONT TO MONITOR.
--- NOTE | 2020-05-24 20:33 | NUR ---
BED ASSIGNMENT [id number]
--- NOTE | 2020-05-24 20:50 | NUR ---
REPORT GIVEN TO KELLIE GRIGGS FOR BRIEN.
[2020-05-24 21:31] VITALS: BP 122/90
[2020-05-24] MEDS ORDERED: ONDANSETRON HCL/PF 4 MG/2 ML VIAL IV PRN (22:30)
[2020-05-24] MEDS ORDERED: NALOXONE HCL 0.4 MG/ML AMPUL IV PRN (22:30)
[2020-05-24] MEDS ORDERED: ACETAMINOPHEN 650 MG/SUPP.RECT RC PRN (22:30)
[2020-05-24] MEDS ORDERED: HYDROCODONE/APAP 5/325MG TABLET GT PRN (22:30)
[2020-05-24] MEDS ORDERED: ACETAMINOPHEN ES 500 MG TABLET GT PRN (22:30)
[2020-05-25] VITALS: BP 122/65
[2020-05-25] MEDS: JEVITY 1.2 CAL 1,000 ML BOTTLE GT PRN (01:51)
--- NOTE | 2020-05-25 02:49 | NUR ---
RN notes Admitted a 44 year male from ER via stretcher in stable condition with diagnosis of seizure. Vital signs taken, wnl. No physical manifestation of pain or discomfort. Obtunded. Breathing even and unlabored. Room air well tolerated. Pereira catheter in place draining clear yellow with no foul odor urine. Started feeding jevity 1.2 at 30mls/hr, tolerating well. Kept clean and dry. Will continue to monitor and will endorse to next shift for continuity of care
[2020-05-25 04:00] VITALS: BP 115/86
[2020-05-25] MEDS: LORAZEPAM INJ 2 MG/ML VIAL IV PRN ×3 (04:17→09:05)
--- NOTE | 2020-05-25 07:15 | NUR ---
LICENSED AUDIOLOGIST NOTES RECEIVED PATIENT OBTUNDED , NOT IN ACUTE DISTRESS , RESPIRATIONS EVEN AND UNLABORED WITH SPO2 OF 100% VIA RA , ST115 ON BEDSIDE MONITOR , FC DRAINING WELL VIA GRAVITY , GT WITH JEVITY @ 30ML/HR TOLERATING WELL , SHIRLEY MIDLINE SL , ALL NEEDS ATTENDED , WILL CONTINUE TO MONITOR
[2020-05-25] MEDS: LIOTHYRONINE SODIUM (25 MCG) 25 MCG TABLET GT SCH (07:54)
[2020-05-25 08:00] VITALS: BP 114/89
[2020-05-25] MEDS ORDERED: ALBUTEROL FS 2.5 MG/0.5 ML VIAL.NEB NEB PRN (08:00)
[2020-05-25] MEDS: DOCUSATE SODIUM LIQ 100 MG/10 ML UDC GT SCH (08:46)
[2020-05-25] MEDS: MULTIVIT W/MINERALS 1 TAB TABLET GT SCH (08:46)
[2020-05-25] MEDS: TOPIRAMATE 100 MG TABLET GT SCH ×2 (08:46→21:16)
[2020-05-25] MEDS: METOPROLOL TARTRATE 50 MG TABLET GT SCH ×2 (08:47→21:00)
--- NOTE | 2020-05-25 09:05 | NUR ---
FINANCIAL ADVISER NOTES PT HAD SEIZURE ACTIVITY LASTINF FOR 20-30 SECONDS , HR 120-130 BP, , SPO2 81% , SUCTIONED PATIENT , PLACED PT ON O2 AT 3LPM NC , ATIVAN GIVEN PRN , WILL CONTINUE TO MONITOR , PT VS STABLE POST SEIZURE , HOB @ 45, WILL CONTINUE TO MONITOR
[2020-05-25] MEDS: LEVETIRACETAM (500MG) 1,500 MG in IV NS 0.9% 100 ML IV SCH ×2 (09:07→18:32)
--- NOTE | 2020-05-25 10:07 | NUR ---
TIE BUYER NOTES REPORT GIVEN TO INA RN FOR CONTINUITY OF CARE , PT STABLE AT THIS TIME , ALL QUESTIONS ANSWERED ,
[2020-05-25 12:00] VITALS: BP 107/72
[2020-05-25 16:00] VITALS: BP 127/72
--- NOTE | 2020-05-25 19:10 | NUR ---
RN NOTE RECEIVED PT AWAKE, RESTING BED. FULL CODE. OBTUNDED. ALLERGIES NOTED. MIDLINE IS IN LEFT UPPER ARM, PATENT INTACT FLUSHING WELL. MONITOR SHOWS ST 110. G TUBE FEEDING JEVITY @ 30ML TOLERATING WELL. O2 SAT AT 99 ON RA TOLERATING WELL. NO SIGNS OF RESPIRATORY DISTRESS. BED LOCKED IN LOWEST POSITION. NEEDS ANTICIPATED. WILL CONTINUE TO MONITOR.
--- NOTE | 2020-05-25 19:22 | NUR ---
RN NOTE No any significant changes noted. No seizure noted after the 914 episode. S/E by Dr. Doll, still awaiting EEG. Kept clean, warm and dry. Needs attended. Spoke with family, updated re: patient's condition.
[2020-05-25 20:00] VITALS: BP 107/72
[2020-05-25] MEDS: MAGNESIUM HYDROXIDE 30 ML UDC GT SCH (21:15)
[2020-05-25] MEDS: TRAZODONE 50 MG TABLET GT SCH (21:15)
[2020-05-26] VITALS (7 sets, daily range): BP systolic 104–141; BP diastolic 61–79
--- NOTE | 2020-05-26 01:00 | NUR ---
PROJECT ENGINEERING DIRECTOR NOTE PT IS STABLE AT THIS TIME. NO APPARENT DISTRESS NOTED. G TUBE FEEDING ON AND TOLERATING WELL. WILL CONTINUE TO MONITOR.
--- NOTE | 2020-05-26 03:02 | NUR ---
RN NOTE CLEANED PT. 1 MUCOID LIKE BOWEL MOVEMENT. PT DESAT TO 80, CALLED RT ALIYAH TO ASSIST AND PLACED ON NON REBREATHER AT 15L OF O2. PT IS NOW TOLERATING WELL, SATURATING AT 98%. WILL CONTINUE TO MONITOR. Addendum: 05/26/20 at 0410 by CHIO CESAR RN WRONG PATIENT
--- NOTE | 2020-05-26 06:35 | NUR ---
PMO LEAD NOTE PT IS RESTING IN BED. NO APPARENT SIGNS OF DISTRESS AT THIS TIME. O2 SAT 98 ON RA, TOLERATING WELL. IV SITES PATENT AND INTACT. NEEDS ATTENDED. WILL ENDORSE TO ONCOMING NURSE FOR CONTINUATION OF CARE.
--- NOTE | 2020-05-26 07:20 | NUR ---
RN NOTE Received patient awake, opens eyes but does not follow commands. Tolerated room air. SR 90's on the monitor. Pereira cath intact, noted with alyssa colored urine drained to BSD. GT intact, feeding tolerated. KATE midline intact. No episode of seizure form last shift, will continue to monitor. Awaiting EEG.
[2020-05-26] MEDS: LEVOTHYROXINE SODIUM 75 MCG TABLET PO SCH (08:34)
[2020-05-26] MEDS: LEVETIRACETAM (500MG) 1,500 MG in IV NS 0.9% 100 ML IV SCH ×2 (08:34→19:02)
[2020-05-26] MEDS: DOCUSATE SODIUM LIQ 100 MG/10 ML UDC GT SCH (08:34)
[2020-05-26] MEDS: METOPROLOL TARTRATE 50 MG TABLET GT SCH ×2 (08:35→21:18)
[2020-05-26] MEDS: TOPIRAMATE 100 MG TABLET GT SCH ×2 (08:35→21:18)
[2020-05-26] MEDS: MULTIVIT W/MINERALS 1 TAB TABLET GT SCH (08:35)
[2020-05-26] MEDS: LIOTHYRONINE SODIUM (25 MCG) 25 MCG TABLET GT SCH (09:05)
--- NOTE | 2020-05-26 12:25 | NUR ---
TEACHER OF THE HEARING IMPAIRED NOTES RECEIVED PT FROM INA RN VIA BED, PT IS AWAKE, NON VERBAL, NO SIGN OF PAIN, NOT IN DISTRESS, SEIZURE PRECAUTIONS IN PLACE, KEPT COMFORTABLE, VITALS TAKEN AND RECORDED, GT FEEDINGS CONTINUED, F/C IN PLACE, KEPT WARM AND COMFORTABLE IN BED.
--- NOTE | 2020-05-26 12:25 | NUR ---
RN NOTE 1130: No any significant changes. No seizure activity noted. coil repair technician was here but said unable to perform the procedure well due to frequent moving. 1225: Endorsed care to Keren HOPKINS and brought to 306-2 via bed using ACLS protocol, VS remained stable.
[2020-05-26] MEDS: JEVITY 1.2 CAL 1,000 ML BOTTLE GT PRN (12:49)
--- NOTE | 2020-05-26 18:40 | NUR ---
BONE GRINDER NOTES PT IN BED, RESTING, NO SIGN OF PAIN OR DISTRESS, NON VERBAL, GT FEEDING INFUSING WELL, TOLERATES WELL, PM CARE PROVIDED, TURNED AND REPOSITIONED Q2 HOURS, SAFETY AND SEIZURE PRECAUTIONS OBSERVED, KEPT WARM AND COMFORTABLE IN BED.
--- NOTE | 2020-05-26 19:53 | NUR ---
RN OPENING NOTES PATIENT RECEIVED RESTING IN BED OBTUNDED, STABLE ON RA WITH BREATHING EVEN AND UNLABORED. NO SOB NOTED. NO SIGNS OF ACUTE DISTRESS. NO COMPLAINTS OF PAIN OR DISCOMFORT- NO FACIAL GRIMACING NOTED. ANTONIO IN PLACE. GTUBE FEEDING RUNNING JEVITY 1.2 @ 30 ML/HR. KATE MIDLINE NOTED AND IN PLACE. SAFETY PRECAUTIONS IN PLACE WITH BED IN LOWEST POSITION, CALL LIGHT WITHIN REACH, BREAKS ON, SIDE RAILS UP. WILL CONTINUE TO MONITOR THROUGHOUT THE NIGHT.
[2020-05-26] MEDS: TRAZODONE 50 MG TABLET GT SCH (21:18)
[2020-05-26] MEDS: MAGNESIUM HYDROXIDE 30 ML UDC GT SCH (21:18)
[2020-05-27] VITALS: BP 105/70
[2020-05-27 04:00] VITALS: BP 107/74
--- NOTE | 2020-05-27 06:57 | NUR ---
RN CLOSING NOTES PATIENT RESTING IN BED OBTUNDED, STABLE ON RA WITH BREATHING EVEN AND UNLABORED. NO SOB NOTED. NO SIGNS OF ACUTE DISTRESS. NO COMPLAINTS OF PAIN OR DISCOMFORT- NO FACIAL GRIMACING NOTED. ANTONIO IN PLACE. GTUBE FEEDING RUNNING JEVITY 1.2 @ 30 ML/HR. KATE MIDLINE NOTED AND IN PLACE. SAFETY PRECAUTIONS IN PLACE WITH BED IN LOWEST POSITION, CALL LIGHT WITHIN REACH, BREAKS ON, SIDE RAILS UP. ALL NEEDS ATTENDED TO. PATIENT KEPT CLEAN AND DRY THROUGHOUT THE NIGHT. WILL ENDORSE TO ONCOMING SHIFT ABOUT BRIEN.
--- NOTE | 2020-05-27 07:20 | NUR ---
RN OPENING NOTES PATIENT IN BED RESTING. NOT IN ANY FORM OF DISTRESS. NO SOB. NO S/S F PAIN OR DISCOMFORT. IVB ACCESS INTACT AND PATENT. GTF TOLERATING WELL. ANTONIO CATHETER IN PLACE. KEPT PATIENT SAFE AND COMFORTABLE. SEIZURE PREC OBSERVED. BED IN LOW/LOCKED PSOITION. PADDED SIDERAILS UP, CALL LIGHT IN REACH, BED ALARM ON. WILL CONT TO MONIOTR ACCORDINGLY
[2020-05-27 08:00] VITALS: BP 108/71
[2020-05-27] MEDS: LEVETIRACETAM SOL (5 ML) 100 MG/ML UDC GT SCH ×2 (08:56→21:05)
[2020-05-27] MEDS: DOCUSATE SODIUM LIQ 100 MG/10 ML UDC GT SCH (08:56)
[2020-05-27] MEDS: TOPIRAMATE 100 MG TABLET GT SCH ×2 (08:57→21:09)
[2020-05-27] MEDS: MULTIVIT W/MINERALS 1 TAB TABLET GT SCH (08:58)
[2020-05-27] MEDS: METOPROLOL TARTRATE 50 MG TABLET GT SCH ×2 (09:00→21:10)
[2020-05-27] MEDS: LEVOTHYROXINE SODIUM 75 MCG TABLET PO SCH (09:01)
[2020-05-27] MEDS: LIOTHYRONINE SODIUM (25 MCG) 25 MCG TABLET GT SCH (09:01)
[2020-05-27 16:00] VITALS: BP 106/87
--- NOTE | 2020-05-27 18:39 | NUR ---
RN CLOSING NOTES PATIENT IN STABLE CONDITION. ALL NEEDS ATTENDED AND PROVIDED. ALL DUE MEDS GIVEN ORDERED. KEPT PATIENT SAFE AND COMFORTABLE. BED IN LOW/LOCKED POSITION. SIDERAILS UPX2, CALL LIGHT IN REACH. WILL ENDORSE ACCORDINGLY.
--- NOTE | 2020-05-27 18:42 | NUR ---
FOR DISCHARGE. REPORT GIVEN TO MONAE HOPKINS AT [facility]. DC INSTRUCTIONS GIVEN, VERBALIZED UNDERSTANDING.
--- NOTE | 2020-05-27 19:23 | NUR ---
GUN PERFORATOR OPENING NOTES PATIENT AWAKE, OBTUNDED; BREATHING EVEN AND UNLABORED; TOLERATING ROOM AIR WELL; NO SOB NOTED; G TUBE IN PLACE; ANTONIO IN PLACE, WITH YELLOW OUTPUT; PATIENT HAS NO IV ACCESS AT THIS TIME; PER AM NURSE, PATIENT AWAITING TO BE PICKED UP FOR DISCHARGE APPROX 1930; WILL CONT TO MONITOR, AWAITING MUSEUM ASSISTANT; CHARGE NURSE AWARE
[2020-05-27 20:00] VITALS: BP_SYST 123; BP_SYST 133; BP_DIAS 74; BP_DIAS 91
--- NOTE | 2020-05-27 20:01 | NUR ---
TELE MONITOR OPENING NOTES DISCHARGE HELD; PER EMT, CLARIFY WITH SHELTER IF PATIENT QUALIFIES TO BE ADMITTED D/T HR OF 115; SPOKE WITH VADIM, NURSING SCRAP WHEELER, SHE REPORTED THEY ARE UNABLE TO ACCEPT THE PATIENT D/T HR OF 115, PER NURSING SCRAP WHEELER, ACCEPTABLE HR SHOULD BE AROUND 90S; CHARGE NURSES (MARIO, RN AND JESUS, RN) BOTH AWARE OF SITUATION; ATTEMPTED TO CALL CASE MGMTX2, NO ANSWER; SPOKE WITH DR. GONZALES REGARDING DISCHARGE; PER DR. GONZALES INCREASE LOPRESSOR FROM 50MG/Q12 TO 100MG/Q12; PER DR. GONZALES KEEP PATIENT TELE AND CONTINUE MEDICATIONS UNTIL TOMORROW; PER DR. GONZALES, HOPING TO MAINTAIN HR AT ACCEPTABLE LEVEL IN ORDER FOR DISCHARGE TOMORROW; WILL CONT TO MONITOR Addendum: 05/27/20 at 2006 by LYNETTE MOREIRA RN TALENT SOURCING SPECIALIST NOTES*
[2020-05-27] MEDS: TRAZODONE 50 MG TABLET GT SCH (21:09)
[2020-05-27] MEDS: MAGNESIUM HYDROXIDE 30 ML UDC GT SCH (21:10)
[2020-05-28] VITALS: BP_SYST 108; BP_DIAS 72; BP_DIAS 91
[2020-05-28] MEDS: JEVITY 1.2 CAL 1,000 ML BOTTLE GT PRN (03:37)
[2020-05-28 04:00] VITALS: BP 103/70
--- NOTE | 2020-05-28 06:33 | NUR ---
EMERGENCY MANAGEMENT COORDINATOR CLOSING NOTES PATIENT RESTING IN BED COMFORTABLY; OBTUNDED; BREATHING EVEN AND UNLABORED; NO SOB NOTED; TOLERATING ROOM AIR WELL; TELE MONITOR READS SINUS RHYTHM 90S BPM; G TUBE IN PLACE, RUNNING JEVITY 1.2CAL @ 30ML/HR; ANTONIO CATH IN PLACE, WITH YELLOW OUTPUT OF 300CC THROUGHOUT SHIFT; L HAND #24 INTACT AND PATENT, FLUSHING WELL; NO S/S OF REDNESS OR INFILTRATION NOTED; LATEST TEMP 99.0F, COOLING MEASURES IMPLEMENTED AND TYLENOL GIVEN VIA GTUBE PER MD ORDER; ALL NEEDS RENDERED; SAFETY PRECAUTIONS IMPLEMENETED; SEIZURE PRECAUTIONS IMPLEMENTED; BED LOCKED IN LOW POSITION; WILL ENDORSE BRIEN TO ONCOMING SHIFT
--- NOTE | 2020-05-28 07:44 | NUR ---
RN OPENING NOTE Patient is resting in bed, non-verbal, able to open eyes an responds to touch. Tele monitor SR 90s. IV line in the left hand #24g s/l flushing well. GTF running Jevity 1.2@30mls/hour with 0 ml residual. Pereira catheter in place with clear yellow output. Bed is in lowest position, side rails x3 in upright position, fall safety and aspiration precautions enforced. Will continue with plan of care.
[2020-05-28 07:58] VITALS: BP 110/80
[2020-05-28 08:00] VITALS: BP_SYST 110; BP_SYST 131; BP_DIAS 80; BP_DIAS 82
[2020-05-28] MEDS: TOPIRAMATE 100 MG TABLET GT SCH (08:06)
[2020-05-28] MEDS: MULTIVIT W/MINERALS 1 TAB TABLET GT SCH (08:06)
[2020-05-28] MEDS: LEVOTHYROXINE SODIUM 75 MCG TABLET PO SCH (08:06)
[2020-05-28] MEDS: LEVETIRACETAM SOL (5 ML) 100 MG/ML UDC GT SCH (08:06)
[2020-05-28] MEDS: LIOTHYRONINE SODIUM (25 MCG) 25 MCG TABLET GT SCH (08:08)
[2020-05-28] MEDS: DOCUSATE SODIUM LIQ 100 MG/10 ML UDC GT SCH (08:10)
[2020-05-28] MEDS: METOPROLOL TARTRATE 50 MG TABLET GT SCH (09:22)
--- NOTE | 2020-05-28 10:37 | NUR ---
RN NOTE Dr. Blackman has been notified to complete med-recon and orders for DVT prophylaxis around 0900. So far no response from . Sent a second message to . Addendum: 05/28/20 at 1103 by SANCHO RAMIREZ RN RESPONSE: "Patient will be DC today." No new orders.
[2020-05-28 12:00] VITALS: BP 154/89
--- NOTE | 2020-05-28 14:31 | NUR ---
ESCALATOR SERVICE MECHANIC NOTE Patient is medically cleared for discharge. Patient is A/O x0, opens eyes, moans, shows no signs of acute distress or SOB, stable on RA. IV removed, ID band removed. Skin assessed, photos taken and placed in chart. G-tube in place. Patient is leaving with boles catheter. DC folder given to EMS. Report given to Cathleen HOPKINS at [facility] in [place]. Patient picked up by EMS en route to facility. family made aware.
== END 2020-05-28 14:15 | DRG 53 ==
LOC: ER 12:29 → SAOV 20:43 → ICU 21:10 → TELE 05-26 12:30
PROVIDERS: ADMIT Internal Medicine; ATTEND Internal Medicine
DX: G40.911 Epilepsy, unspecified, intractable, with status epilepticus (principal); G93.1 Anoxic brain damage, not elsewhere classified; E03.9 Hypothyroidism, unspecified; Z79.899 Other long term (current) drug therapy; R47.01 Aphasia; F48.2 Pseudobulbar affect; I10 Essential (primary) hypertension; K21.9 Gastro-esophageal reflux disease without esophagitis; M62.838 Other muscle spasm; R26.9 Unspecified abnormalities of gait and mobility; Z93.0 Tracheostomy status; Z93.1 Gastrostomy status; Z98.890 Other specified postprocedural states; Z79.890 Hormone replacement therapy; Z88.2 Allergy status to sulfonamides; Z88.8 Allergy status to other drugs, medicaments and biological substances; Z79.51 Long term (current) use of inhaled steroids
CPT/HCPCS: 36415; 71045-TC; 80048-TC; 80076-TC; 81000-TC; 83880; 85025-TC; 87081-TC; 87086-TC; 95819-TC; G0378; J1953; J1956; J2060; J7030; J7040; J7050; U0003-CS

== ENCOUNTER 2023-11-18 08:00 | Emergency (ER) | payer MEDICAID ==
[~2023-11-18] VITALS: Ht 167.6 cm; Wt 85.3 kg
[~2023-11-18 08:00] MED LIST changes: +ACET-2605 GT; +ACET650S11 RC; -AMLO2.5T4 GT; -BISA10SU8 RC; -CEPH-570 GT; -CHOL100045 GT; +CRAN425C6 GT; -DIVA125C2 GT; +DOCU-141 GT; +ENOX40DI SQ; -LACT1CAP7 GT; -LEVA1.2528 IH; +LEVA15HF4 IH; +LORA2VIA11 IM; +MULT-447 GT; -MUPI22OI2 TP; +NA P133E RC; +ONDA4TAB5 GT; -TRIA80CR12 TP
[2023-11-18] MEDS: IV NS 0.9% 1,000 ML BAG IV ONE ×2 (08:55→10:00)
[2023-11-18] MEDS ORDERED: LAMO100T17 GT (09:24)
[2023-11-18] MEDS ORDERED: CHOL100043 GT (09:24)
[2023-11-18] MEDS ORDERED: METO50TA16 GT (09:24)
[2023-11-18] MEDS ORDERED: LACT100027 GT (09:24)
[2023-11-18] MEDS ORDERED: GABA300C GT (09:24)
[2023-11-18] MEDS ORDERED: POTA-88 GT (09:24)
[2023-11-18] MEDS ORDERED: DOCU100T2 GT (09:24)
[2023-11-18] MEDS ORDERED: LEVO112T7 GT (09:24)
[2023-11-18] MEDS ORDERED: BISA10SU11 RC (09:24)
[2023-11-18] MEDS ORDERED: LEVE500S9 GT (09:24)
[2023-11-18 09:38] LABS: BASOPHILS % (AUTO) 0.4 % (0.0-2.0); HEMATOCRIT 52 % (39-51); HEMOGLOBIN 17.9 g/dL (13.5-17.5); LYMPHOCYTES % (AUTO) 45.2 % (20.0-44.0); MEAN CORPUSCULAR HEMOGLOBIN 33 PG (26.0-33.0); MEAN CORPUSCULAR HGB CONC 34 g/dl (31.0-36.0); MEAN CORPUSCULAR VOLUME 97 fL (80-96); MONOCYTES # (AUTO) 0.4 K/uL (0.1-1.30); MONOCYTES % (AUTO) 9.6 % (2.0-12.0); NEUTROPHILS % (AUTO) 44.8 % (43.0-81.0); PLATELET COUNT (AUTO) 155 K/uL (150-450); RED BLOOD CELL COUNT(AUTO) 5.38 MIL/uL (4.5-6.0); RED CELL DISTRIBUTION WIDTH 13.2 % (11.5-15.0); WHITE BLOOD COUNT (AUTO) 4.4 K/uL (4.3-11.0)
[2023-11-18 09:42] LABS: CALCIUM, SERUM 8.9 mg/dL (8.5-10.1); CARBON DIOXIDE 23 mmol/L (21-32); CHLORIDE 105 mmol/L (98-107); CREATININE 0.6 mg/dL (0.6-1.3); GLUCOSE 91 mg/dL (74-106); POTASSIUM 3.9 mmol/L (3.5-5.1); SODIUM SERUM 139 mmol/L (136-145); UREA NITROGEN, BLOOD 14 mg/dL (7-18)
[2023-11-18 09:48] LABS: ALANINE AMINOTRANSFERASE 14 U/L (12-78); ALBUMIN 4.2 g/dL (3.4-5.0); ALKALINE PHOSPHATASE 100 U/L (46-116); ASPARTATE AMINOTRANSFERASE 18 U/L (15-37); BILIRUBIN,DIRECT 0.2 mg/dL (0.0-0.2); BILIRUBIN,TOTAL 0.9 mg/dL (0.2-1.0); LIPASE 46 U/L (16-77); TOTAL PROTEIN, SERUM 8.2 g/dL (6.4-8.2)
[2023-11-18 09:50] LABS: LACTIC ACID 2.6 mmol/L (0.4-2.0)
[2023-11-18] MEDS ORDERED: IOHEXOL-300 100 ML VIAL IV ONE (09:53)
[2023-11-18] MEDS ORDERED: IV NS 0.9% 250 ML IV ONE (09:53)
[2023-11-18 11:07] LABS: APPEARANCE,URINE SLIGHTLY CLOUDY (CLEAR); BILIRUBIN,URINE NEGATIVE (NEGATIVE); BLOOD, URINE 1+ Ery/uL (NEGATIVE); COLOR,URINE DARK YELLOW (YELLOW); KETONES,URINE NEGATIVE (NEGATIVE); LEUKOCYTE ESTERASE ,URINE 1+ (NEGATIVE); NITRITE, URINE NEGATIVE (NEGATIVE); PROTEIN,URINE TRACE mg/dl (NEGATIVE); UGLUCOSE NEGATIVE (NEGATIVE); UROBILINOGEN,URINE 0.2 EU/dL (0.2)
[2023-11-18] MEDS ORDERED: CIPR500T5 PO (11:15)
[2023-11-18 11:26] LABS: INR 1.07 (0.91-1.10); PARTIAL THROMBOPLASTIN TIME 33.1 SEC (24.3-34.3); PROTHROMBIN TIME 11.3 SECS (9.2-11.1)
[2023-11-18 11:31] LABS: ADD URINE CULTURE YES; BACTERIA,URINE Moderate /HPF (None Seen); SQUAMOUS EPITHELIAL CELL,UR Few /HPF (None Seen)
[2023-11-18 12:02] VITALS: BP 99/74; TEMP 98.1; O2SAT 97
== END 2023-11-18 12:11 ==
LOC: ER 08:00
DX: R14.0 Abdominal distension (gaseous) (principal); K62.89 Other specified diseases of anus and rectum; R19.7 Diarrhea, unspecified; I10 Essential (primary) hypertension; K21.9 Gastro-esophageal reflux disease without esophagitis; Z88.2 Allergy status to sulfonamides; Z88.8 Allergy status to other drugs, medicaments and biological substances
CPT/HCPCS: 99285; 74177; 96360; 96361; 85025; 80048; 87086; 83605 ×2; 83690; 80076; 81001; 36415; 85730; J7030 ×2; J7050; Q9967

== ENCOUNTER → 2024-06-01 | Emergency (ER) | payer MEDICAID ==
[~2024-06-01] VITALS: Ht 188 cm; Wt 64.0 kg
[~2024-06-01] MED LIST changes: -ACET650S11 RC; +BISA10SU11 RC; +CHOL100043 GT; +CIPR500T5 PO; +DIATR MEGLU/DIATRIZOATE SODIUM 30 ML BOTTLE (GASTROGRAPHIN) ONE; -DOCU-141 GT; +DOCU100T2 GT; -ENOX40DI SQ; +GABA300C GT; -LACT-209 GT; +LACT100027 GT; +LAMO100T17 GT; -LEVA15HF4 IH; +LEVE500S9 GT; -LEVE500T9 GT; +LEVO112T7 GT; -LEVO150T8 GT; -LIOT25TA7 GT; -LORA2VIA11 IM; -MAGN400O6 GT; -METO25TA20 GT; +METO50TA16 GT; -ONDA4TAB5 GT; +POTA-88 GT; -TRAZ-182 GT
[2024-06-01 08:22] VITALS: BP 116/75; TEMP 98.4; O2SAT 98
== END | disposition home or self-care (01) ==
LOC: ER 03:58
DX: K94.29 Other complications of gastrostomy (principal); R47.01 Aphasia; I10 Essential (primary) hypertension; K21.9 Gastro-esophageal reflux disease without esophagitis; Z86.69 Personal history of other diseases of the nervous system and sense organs; Z86.79 Personal history of other diseases of the circulatory system; Z87.448 Personal history of other diseases of urinary system; Z87.438 Personal history of other diseases of male genital organs; Z87.39 Personal history of other diseases of the musculoskeletal system and connective tissue; Z88.2 Allergy status to sulfonamides; Z88.8 Allergy status to other drugs, medicaments and biological substances; Y84.8 Other medical procedures as the cause of abnormal reaction of the patient, or of later complication, without mention of misadventure at the time of the procedure; Y82.8 Other medical devices associated with adverse incidents
CPT/HCPCS: 99284; 43762; 74018; Q9963

== ENCOUNTER 2024-06-03 16:24 | Emergency (ER) | payer MEDICAID ==
[~2024-06-03] VITALS: Ht 188 cm; Wt 64.0 kg
[~2024-06-03 16:24] MED LIST changes: -DIATR MEGLU/DIATRIZOATE SODIUM 30 ML BOTTLE (GASTROGRAPHIN) ONE
[2024-06-03] MEDS ORDERED: DIATR MEGLU/DIATRIZOATE SODIUM 30 ML BOTTLE (GASTROGRAPHIN) ONE (17:10)
[2024-06-03 21:15] VITALS: BP 130/83; TEMP 97.9; O2SAT 96
== END 2024-06-03 21:16 ==
LOC: ER 16:47
DX: K94.29 Other complications of gastrostomy (principal); I10 Essential (primary) hypertension; Z98.890 Other specified postprocedural states; Z79.1 Long term (current) use of non-steroidal anti-inflammatories (NSAID); Z79.899 Other long term (current) drug therapy; Z79.891 Long term (current) use of opiate analgesic; Z88.2 Allergy status to sulfonamides; Z88.1 Allergy status to other antibiotic agents
CPT/HCPCS: 99284; 43762; 74018; Q9963